=== PATIENT | male | born 1980 | race Hispanic/Latino ===

== ENCOUNTER → 2023-03-14 09:53 | Outpatient (REF) | payer OTHER, SELFPAY ==
[2023-03-14 19:53] LABS: Hepatitis B Surface Antigen Negative (Negative)
[2023-03-14 20:11] LABS: Hepatitis B Core Ab, Total Negative (Negative); Hepatitis B Surface Antibody Negative
[2023-03-14 20:17] LABS: Hepatitis A Antibody, Total Positive (Negative)
== END ==
LOC: REG 09:53
PROVIDERS: ATTENDING PHYSICIAN Internal Medicine Gastroenterology
DX: R74.8 Abnormal levels of other serum enzymes (principal)
CPT/HCPCS: 36415; 86704; 86706; 86708; 87340

== ENCOUNTER → 2023-03-27 08:37 | Outpatient (REF) | payer OTHER, SELFPAY ==
[2023-03-28 20:44] LABS: Hepatitis C Antibody Negative (Negative)
== END ==
LOC: REG 08:37
PROVIDERS: ATTENDING PHYSICIAN Internal Medicine Gastroenterology
DX: R74.8 Abnormal levels of other serum enzymes (principal)
CPT/HCPCS: 36415; 86803

== ENCOUNTER → 2023-04-02 16:24 | Outpatient (REF) | payer OTHER, SELFPAY | LOC: RAD 16:24 | PROVIDERS: ATTENDING PHYSICIAN Internal Medicine Gastroenterology | DX: R74.8 Abnormal levels of other serum enzymes (principal) | CPT/HCPCS: 76700 ==

== ENCOUNTER → 2023-04-26 06:37 | Day surgery (SDC) | payer OTHER, SELFPAY | LOC: GI 06:37 | PROVIDERS: ATTENDING PHYSICIAN Internal Medicine Gastroenterology | DX: Z12.11 Encounter for screening for malignant neoplasm of colon (principal); K63.5 Polyp of colon; K64.8 Other hemorrhoids; K29.50 Unspecified chronic gastritis without bleeding; B96.81 Helicobacter pylori [H. pylori] as the cause of diseases classified elsewhere; K31.A0 Gastric intestinal metaplasia, unspecified; K31.89 Other diseases of stomach and duodenum; R12 Heartburn; Z13.810 Encounter for screening for upper gastrointestinal disorder; Z87.19 Personal history of other diseases of the digestive system; Z80.0 Family history of malignant neoplasm of digestive organs | CPT/HCPCS: 45380; 43239; 88305; 88342 ==

== ENCOUNTER → 2024-02-24 06:54 | Outpatient (REF) | payer OTHER, SELFPAY ==
[2024-02-24 08:39] LABS: ALT (SGPT) 198 U/L (0-50); AST (SGOT) 91 U/L (17-59); Albumin 4.3 g/dl (3.5-5.0); Alkaline Phosphatase 149 U/L (38-126); Total Bilirubin 0.7 mg/dl (0.2-1.3); Total Protein 7.6 g/dl (6.3-8.2)
== END ==
LOC: REG 06:54
PROVIDERS: ATTENDING PHYSICIAN Podiatrist Foot & Ankle Surgery
DX: Z79.899 Other long term (current) drug therapy (principal)
CPT/HCPCS: 36415; 80076

== ENCOUNTER 2025-01-07 10:45 | Emergency (ER) | payer SELFPAY ==
[2025-01-07 10:55] VITALS: BP 136/84
--- NOTE | 2025-01-07 11:00 | ED.GENMED ---
History of Present Illness
General
Chief Complaint: Flank Pain
Source: patient
Exam Limitations: none
Time Seen by Provider: 01/07/25 10:58
Nursing documentation reviewed up to this point in time: agreed with
History of Present Illness
History of Present Illness:
44 yo male w h/o GERD presents with L flank pain that started a week ago. The pain has progressively worsened over time, with the most significant increase in severity occurring last night after sneezing. He denies any fever, chills, nausea, or
vomiting. Has been urinating more frequently. There is no history of kidney stones.
Past History
Past History
ED Past Medical History: GERD
ED Past Surgical History: Appendectomy
Social History
Tobacco: Non-smoker
Alcohol: Occasional
Drug: Marijuana
Personal:
Living: with family
Employment: Employed
Family History
Family History: Diabetes and Hypertension; Negative Early CAD or CAD
Review of Systems
Review of Systems
Allergies reviewed?: Yes
All Other Systems: ROS reviewed and negative except as documented in HPI and ROS
Phy Exam
Physical Exam
Physical Exam:
GENERAL: No acute distress. A&Ox3.
CONSTITUTIONAL: Afebrile.
EYES: clear, conjunctivae normal
ENMT: moist mucus membranes, Pharynx nl
RESPIRATORY: Regular respirations, nonlabored, lungs clear.
CARDIOVASCULAR: Regular rate and rhythm, no murmurs, no rubs.
GI: Soft, nontender, normal BS. Left flank tenderness
MUSCULOSKELETAL: Moves with ease. Well perfused. Tender to palpate left flank area.
SKIN: Warm, dry, pink
PSYCH: Normal mood and affect. Well kept, interactive and appropriate
NEUROLOGIC: Awake, alert and oriented. No focal neurological deficits
Course
Orders/Labs/Results
Orders:
Orders
01/07/25 11:06
Urinalysis Reflex To Culture Urgent
Date Specimen was Collected: 01/07/25
Time Specimen was Collected: 11:02
Urine Microscopic Reflex Cult Urgent
01/07/25 11:10
0.9% Sodium Chloride 1000 ml [Nss] 1,000 ml IV BOLUS
Ketorolac [Toradol] 15 mg IV NOW STA
01/07/25 11:11
CT Abd/pel Without Iv Or Oral Urgent
Comment:
Reason For Exam: Left flank pain
01/07/25 11:15
Complete Blood Count/With Diff Urgent
Comprehensive Metabolic Panel Urgent
Abnormal Lab Results
01/07/25 01/07/25
11:06 11:15
MCH 31.6 H pg
(27.0-31.0)
Abs Immat Gran (auto) 0.1 H 10^3/uL
(0-0.05)
Immature Gran % 1.0 H %
(0-0.5)
Glucose 138 H mg/dl
(70-99)
ALT 87 H U/L
(0-50)
Ur Occult Blood Reflex 2+ A
(Negative)
Urine RBC 3-6 A /HPF
(0-2)
Urine Bacteria (Reflex) Few A
(Negative)
Urine Albumin (Reflex) 1+ A
(Neg - Trace)
01/07/25 11:15
01/07/25 11:15
Vital Signs
Initial and Last Documented VS:
Initial Vital Signs
Temp Pulse Resp BP Pulse Ox
98.5 F 78 20 136/84 96
01/07/25 10:55 01/07/25 10:55 01/07/25 10:55 01/07/25 10:55 01/07/25 10:55
Last Documented Vital Signs
Temp Pulse Resp BP Pulse Ox
98.5 F 75 16 131/78 98
01/07/25 10:55 01/07/25 12:42 01/07/25 12:42 01/07/25 12:42 01/07/25 12:42
MDM/Problems Addressed
Differential Diagnosis Includes:
musculoskeletal pain, kidney stone, pyelonephritis
MDM/Problems Addressed:
44 yo male w h/o GERD presents with L flank pain that started a week ago. The pain has progressively worsened over time, with the most significant increase in severity occurring last night after sneezing. He denies any fever, chills, nausea, or
vomiting. Has been urinating more frequently. There is no history of kidney stones.
Afebrile, NAD
CBC, CMP unremarkable
UA with 3-[address] abdomen/pelvis reveals no acute abnormality, specifically no kidney stone
Reassuring that pain can be reproduced immediately with palpation to left flank area. Most likely musculoskeletal pain
*Pulse Oximetry
SaO2: 96
Oxygen Mode of Delivery: Room air
Patient hypoxic: not evaluated
*Critical Care Note
Total Time (30-74mins, 75-104mins- exclusive of procedures): Not Applicable
ED Attending Note
-
Portions of this chart may have been created with voice recognition software.� Occasional wrong word or��sound alike� substitutions may have occurred due to the inherent limitations of voice recognition software.
Discharge Plan
Departure
Patient Disposition: Home (Routine Discharge)
Date of Disposition: 01/07/25
Time of Disposition: 12:30
Patient with high blood pressure during this ER visit?: No
Condition: Good
Discharge Problem:
Acute right-sided low back pain, Low back strain
Instructions: Low back pain - ED (DC), Musculoskeletal Pain
Prescriptions:
No Action
Advil
600 mg PO Q8H PRN (Reason: pain)
prednisone 10 mg Tablet
See Rx Instructions .ROUTE .COMPLEX Qty: 45 0RF
Rx Instructions:
Take By Mouth:
50 mg daily x3 days, 40 mg daily x3 days,
30 mg daily x3 days, 20 mg daily x3 days,
10 mg daily x3 days
hydrocodone-acetaminophen 5-325 mg tablet
2 tab PO Q6H PRN (Reason: Pain) Qty: 15 0RF
Referrals:
[facility] [Other] - As needed
UNKNOWN - PT DOES,NOT KNOW [Family Provider]
Activity Restrictions/Additional Instructions:
As we discussed, your CAT scan shows nothing worrisome. Specifically no indication of kidney stone. This is most likely musculoskeletal pain. Like a back muscle strain
Ibuprofen 600 mg, with food, every 6 hours as needed for pain
Avoid activity that aggravates the pain
See your doctor in 1 week if not much improved by then.
Interventions
Interventions:
*Risk Screen - Suicide Last Done: 01/07/25 10:55
*General Assessment Last Done: 01/07/25 11:07
*Neglect/Abuse Screening Last Done: 01/07/25 10:55
*ED- Fall Risk Assessment Last Done: 01/07/25 11:07
*ED COVID-19 Vaccine History Last Done: 01/07/25 11:07
*ED Influenza Vaccine History Last Done: 01/07/25 11:07
*Nursing Disposition Last Done: 01/07/25 12:47
WO-Egquut-Khzctrfkfm Assessment Last Done: 01/07/25 11:07
ED-Male Genitourinary Assessment Last Done: 01/07/25 11:07
Discharge Date and Time
Discharge Date/Time: 01/07/25 12:48
Print Language: SAMI
[2025-01-07] MEDS: TORADOL 15 MG IV (11:16)
[2025-01-07] MEDS: NSS 1000 IV (11:18)
[2025-01-07 11:27] LABS: Urine Character Clear (Clear)
[2025-01-07 11:28] LABS: Hematocrit 45.1 % (39.0-52.0); Hemoglobin 16.1 g/dL (13.0-18.0); Mean Corp Hgb Conc. 35.7 g/dL (33.0-37.0); Mean Corpuscular Volume 88.4 fL (80.0-94.0); Nucleated Red Blood Cells % 0 % (-); Platelet Count 157 10^3/uL (130-400); Red Cell Dist. Width 11.7 % (11.5-14.5)
[2025-01-07 11:42] LABS: ALT (SGPT) 87 U/L (0-50); AST (SGOT) 39 U/L (17-59); Albumin 4.3 g/dl (3.5-5.0); Alkaline Phosphatase 125 U/L (38-126); Blood Urea Nitrogen 19 mg/dl (9-20); Calcium 9.2 mg/dl (8.4-10.2); Carbon Dioxide 28 mmol/L (22-30); Chloride 104 mmol/L (98-107); Glucose 138 mg/dl (70-99); Potassium 3.8 mmol/L (3.5-5.1); Sodium 136 mmol/L (135-145); Total Protein 7.6 g/dl (6.3-8.2); eGFR > 60.00
[2025-01-07 12:42] VITALS: BP 131/78
== END 2025-01-07 12:48 | disposition home or self-care (01) ==
LOC: EMR 10:45
PROVIDERS: Registered Nurse; EMERGENCY PHYSICIAN Student in an Organized Health Care Education/Training Program
DX: S39.012A Strain of muscle, fascia and tendon of lower back, initial encounter (principal); X58.XXXA Exposure to other specified factors, initial encounter; K21.9 Gastro-esophageal reflux disease without esophagitis; Z82.49 Family history of ischemic heart disease and other diseases of the circulatory system; Z83.3 Family history of diabetes mellitus; Z87.442 Personal history of urinary calculi; Z90.49 Acquired absence of other specified parts of digestive tract
CPT/HCPCS: 99284; 96374; 96361; 74176; 80053; 81003; 81015; 85025